=== PATIENT | female | born 1995 | race Caucasian/White ===

== ENCOUNTER 2019-07-28 17:59 | Emergency (ER) | payer SELFPAY ==
[2019-07-28 18:22] VITALS: BP 115/63; PULSE 94; RESP 16; TEMP 36.4; O2SAT 99
[2019-07-28] MEDS: ONDANSETRON 4 MG ODT SL (19:38)
[2019-07-28] MEDS: ACETAMINOPHEN 325 MG TABLET 975 MG PO (19:38)
--- NOTE | 2019-07-28 22:10 | ED.NAVMDI ---
HPI - Nausea/Vomiting/Diarrhea <NORMA Chris - Last Filed: 07/28/19 22:19> General Chief complaint: Nausea/Vomiting/Diarrhea Stated complaint: diarrhea x 3 days, fever, Time Seen by Provider: 07/28/19 18:28 Source: patient Mode of arrival: Ambulatory Limitations: no limitations History of Present Illness HPI Narrative: This is a 23-year-old female, smoker, who presents to ED with chief complain of nausea and diarrhea for last 3 days. Patient reports some abdominal discomfort, body aches, moist cough, subjective chills and sweats, T-max of 100.7? yesterday which has been improving today. Patient reports her appetite has been okay and has been hydrating with water well. Patient denies blood in her stools. Patient denies recent travel but reports her nephew was ill with moist cough a couple of weeks ago. Patient denies known contact with person with positive coronavirus. She works at [employer] and had called in sick for 2 days. Patient denies chest pain, breathing difficulty, urinary symptoms. LMP about 2.5 weeks ago. Related Data Previous Rx's Medication Instructions Recorded cyclobenzaprine 10 mg PO Q8H PRN #30 tab 09/05/17 naproxen 500 mg PO Q12H PRN #30 tab 09/05/17 ondansetron 4 mg PO Q8H PRN 4 Days #10 tab 07/28/19 Allergies Allergy/AdvReac Type Severity Reaction Status Date / Time No Known Allergies Allergy Verified 07/28/19 18:50 Review of Systems <NORMA Chris - Last Filed: 07/28/19 22:19> Review of Systems Narrative: General: See HPI HEENT: Denies sinus pain, ear pain, sore throat, difficulty swallowing, dizziness. Respiratory: Denies dyspnea, (+) moist cough, wheezing, hemoptysis, sputum. Cardiovascular: Denies chest pain, palpitations, orthopnea, edema. Gastrointestinal: See HPI : Denies dysuria, frequency, incontinence, hematuria, urinary retention. Musculoskeletal: Denies weakness, joint pain or bony pain. Skin: Denies rash, skin lesions, or other. Neurologic: Denies weakness, headache, numbness, change in speech, confusion, seizures, incoordination. Psychiatric: No concerning psychosocial issues. 12-point review of systems is negative except for those stated above. Patient History <NORMA Chris - Last Filed: 07/28/19 22:19> Medical History Chronic low back pain (Acute) Social History Smoking Status: Current every day smoker substance use type: marijuana Smoking Status: Current every day smoker Substance Use Type: marijuana Exam <NORMA Chris - Last Filed: 07/28/19 22:19> Narrative Exam Narrative: GEN: Alert, oriented x 3, well appearing and nourished, and in no acute distress. Head: Normal cephalic, atraumatic. No scalp or temporal tenderness, palpable mass or rash. EYES: Pupils are equal, round, and reactive to light and accommodation. Extraocular muscles are intact bilaterally. There is no subconjunctival hemorrhage, exudate and sclera non-icteric. ENT: Right auditory canals and tympanic membranes clear. Left auditory canal occluded with cerumen. Hearing grossly intact. Nose without bleeding, purulent discharge or deviation. Facial sinuses nontender to palpate. Mucous moist, no mucosal lesion. Throat without erythema, tonsillar hypertrophy or exudate. Uvula in midline, airway patent. Neck: Trachea in midline. No JVD, non-tender without lymphadenopathy. No masses or thyroid megaly. Supple, non-tender and no meningeal signs. CARDIAC: Normal regular rate and rhythm without murmurs, gallops, or rubs. No chest wall tenderness. No peripheral edema, cyanosis or pallor. Capillary refill is less than 2 seconds. RESPIRATORY: Lungs are clear to auscultate bilaterally. No cough, wheezes, rales, or rhonchi. No stridor, respiratory distress, increase work of breathing, or accessary muscle used. ABD: Abdomen soft, nontender and non-distended. No guarding or rebound tenderness to palpate. Bowel sounds are normal in all 4 quadrants. There is no palpable masses or organomegaly. EXT: Full painless ROM of all extremities with no loss of sensation, strength, effusion or edema. SKIN: Warm, dry, normal color for patient. No erythema, lesions or rash over visible areas. BACK: Nontender without deformity or crepitance. No flank tenderness. NEUROLOGICAL: Alert and oriented to place, time and person. Sensation and motor function intact bilaterally. No facial droops, dysphasia. PSYCHIATRIC: Good judgement and reason, without hallucinations, abnormal affect or abnormal behaviors during the examination. Initial Vital Signs Initial Vital Signs: Vital Signs Temperature 97.6 F 07/28/19 18:22 Pulse Rate 94 H 07/28/19 18:22 Respiratory Rate 16 07/28/19 18:22 Blood Pressure 115/63 07/28/19 18:22 Pulse Oximetry 99 07/28/19 18:22 <Karen Campos DO - Last Filed: 07/29/19 00:34> Initial Vital Signs Initial Vital Signs: Vital Signs Temperature 97.6 F 07/28/19 18:22 Pulse Rate 94 H 07/28/19 18:22 Respiratory Rate 16 07/28/19 18:22 Blood Pressure 115/63 07/28/19 18:22 Pulse Oximetry 99 07/28/19 18:22 Scores <NORMA Chris - Last Filed: 07/28/19 22:19> GCS Dylan coma scale eye opening: Spontaneous Dylan coma scale verbal response: Orientated Blissfield coma scale motor response: Obey commands Blissfield coma scale total score: 15 Course <NORMA Chris - Last Filed: 07/28/19 22:19> Orders Ordered: Discontinued Medications Acetaminophen (Tylenol) 975 mg PO NOW ONE Stop: 07/28/19 18:46 Last Admin: 07/28/19 19:38 Dose: 975 mg Documented by: RADHA Ondansetron HCl (Zofran Odt) 4 mg SL NOW ONE Stop: 07/28/19 18:46 Last Admin: 07/28/19 19:38 Dose: 4 mg Documented by: RADHA Vital Signs Vital signs: Vital Signs - 8 hr 07/28/19 18:22 Temperature 97.6 F Pulse Rate 94 H Respiratory Rate 16 Blood Pressure 115/63 Pulse Oximetry 99 <Karen Campos DO - Last Filed: 07/29/19 00:34> Orders Ordered: Discontinued Medications Acetaminophen (Tylenol) 975 mg PO NOW ONE Stop: 07/28/19 18:46 Last Admin: 03/25/20 19:38 Dose: 975 mg Documented by: CTRCOLLEEN Ondansetron HCl (Zofran Odt) 4 mg SL NOW ONE Stop: 07/28/19 18:46 Last Admin: 07/28/19 19:38 Dose: 4 mg Documented by: CTR.LORRAINE Vital Signs Vital signs: Vital Signs - 8 hr 07/28/19 18:22 Temperature 97.6 F Pulse Rate 94 H Respiratory Rate 16 Blood Pressure 115/63 Pulse Oximetry 99 [facility] - Nausea/Vomiting/Diarrhea <Hussein NORMA Simpson - Last Filed: 07/28/19 22:19> Differential Diagnosis Differential diagnosis: Likely gastroenteritis, dehydration and other (Viral illness) Medical Records Attestation: I reviewed the patient's medical records. MDM Narrative Medical decision making narrative: This is a 23-year-old female who presents to ED with nausea and diarrhea for last 3 days. Abdomen was nontender to palpate, soft, nondistended. Patient's lung sounds are clear to auscultate without increased work of breathing. Patient is afebrile with stable blood pressure. Patient nontoxic appearing. Patient provided with Zofran and was able to hydrate with water without difficulty in ED and discharged to home with prescription. patient given a day of work note and advised good hand hygiene to prevent possible illness transmission to others. Patient reports Imodium is not necessary at this time and increase supportive care. Return precautions were discussed with the patient and patient verbalized understanding and in agreement with treatment plan. Discharge Plan Departure Patient Disposition: Home Clinical Impression: Nausea, Vomiting, and Diarrhea Discharge Date/Time: 07/28/19 19:40 Instructions: DI for Viral Gastroenteritis -- Adult, Gastroenteritis Diet Activity Restrictions/Additional Instructions: You have been diagnosed with [nausea, vomiting, diarrhea likely from viral gastroenteritis. Please use good hand hygiene to prevent spreading illness to others.]. What to do: *Take your medications as directed. Please take Zofran as needed for nausea and vomiting. You can take up to 3 to 4 times a day. If you can tolerate clear liquids with small sips frequently without vomiting and diarrhea you can advance your diet to bland diet. Zofran has been transmitted to [facility] in [place] [facility]. *Follow up with your primary care provider in 2-3 days, call for an appointment. Let them know you were seen in the ED and that we asked you to be seen in follow up. *Return to ED if you have any new, worsening, or concerning symptoms, such as [fever, pain, chest pain, breathing difficulty, unable to tolerate fluids, signs of dehydration, feeling like fainting, or any acute concerns]. Prescriptions: New ondansetron 4 mg tablet,disintegrating 4 mg PO Q8H PRN (Reason: nausea and vomiting) 4 Days Qty: 10 RF: 0 No Action cyclobenzaprine 10 mg tablet 10 mg PO Q8H PRN (Reason: muscle spasm) Qty: 30 RF: 0 naproxen 500 mg tablet 500 mg PO Q12H PRN (Reason: pain) Qty: 30 RF: 0 Referrals: Rhona Delvalle MD [Primary Care Provider] - Stand Alone Forms: Work Release Note
== END 2019-07-28 19:40 | disposition home or self-care (01) ==
PROVIDERS: Emergency Provider Nurse Practitioner Family; PCP Internal Medicine
DX: R11.2 Nausea with vomiting, unspecified (principal); R19.7 Diarrhea, unspecified; R50.9 Fever, unspecified
CPT/HCPCS: 99283

== ENCOUNTER 2019-08-17 02:08 | Emergency (ER) | payer SELFPAY ==
[2019-08-17 02:17] VITALS: BP 129/77; PULSE 96; RESP 18; TEMP 36.6; O2SAT 96; BMI 34.3
--- NOTE | 2019-08-17 02:32 | ED_ITS ---
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 Had a temperature measured at 100 yesterday when presenting for work. Feeling worse today with intermittent fevers throughout the day, mild sore throat, mild cough, no vomiting or diarrhea or abdominal pain, no rashes or dyspnea. No chest pain, palpitations or lower extremity edema. Related Data Previous Rx's Medication Instructions Recorded cyclobenzaprine 10 mg PO Q8H PRN #30 tab 09/05/17 naproxen 500 mg PO Q12H PRN #30 tab 09/05/17 ondansetron 4 mg PO Q8H PRN 4 Days #10 tab 07/28/19 Allergies Allergy/AdvReac Type Severity Reaction Status Date / Time No Known Allergies Allergy Verified 07/28/19 18:50 Review of Systems Review of Systems Narrative: All systems reviewed and are unremarkable except as noted in HPI and below Patient History Social History Smoking Status: Former smoker substance use type: marijuana Smoking Status: Former smoker alcohol intake frequency: 0-2 drinks per day Substance Use Type: marijuana Exam Narrative Exam Narrative: General: Healthy appearing, in no acute distress. Able to give a complete and coherent history. Well-nourished well-developed HEENT: Moist mucous membranes, normal sclera with reactive pupils, posterior pharynx is non erythematous and without exudate. She has no cervical adenopathy Neck: , supple Respiratory: Lungs are clear to auscultation, no wheezing no rales no rhonchi. Full and symmetrical air movement Cardiac: Regular rate and rhythm no murmurs no bruits Abdomen: Soft nontender good bowel tones, no flank pain Skin: Warm and dry, no rashes Neurologic: Grossly neurologically intact with no obvious asymmetries or abnormalities Extremities: No trauma, well perfused Psych: Cooperative, appropriate insight and affect Initial Vital Signs Initial Vital Signs: Vital Signs Temperature 97.8 F 08/17/19 02:17 Pulse Rate 96 H 08/17/19 02:17 Respiratory Rate 18 08/17/19 02:17 Blood Pressure 129/77 08/17/19 02:17 Pulse Oximetry 96 08/17/19 02:17 Course Orders Ordered: ED Orders 08/17/19 02:45 Influenza A & B (PCR) Stat Vital Signs Vital signs: Vital Signs - 8 hr 08/17/19 02:17 08/17/19 03:49 Temperature 97.8 F 98.4 F Pulse Rate 96 H 81 Respiratory Rate 18 16 Blood Pressure 129/77 119/72 Pulse Oximetry 96 100 Medical Decision Making Medical Records Medical records reviewed: Yes I reviewed the patient's medical records. Lab Data Lab results reviewed: Yes I reviewed the patient's lab results. 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 Influenza and COVID-19 swabs are done with instructions to not return to work until she has been completely asymptomatic of fevers, chills, cough and fever for 72 hours Discharge Plan Departure Patient Disposition: Home Clinical Impression: Viral infection Discharge Date/Time: 08/17/19 03:49 Instructions: DI for Influenza -- Adult Activity Restrictions/Additional Instructions: You have an influenza like illness which may be Covid19. Current recommendations are to home isolate (see CDC guidelines below) You should not return to work until you are completely asymptomatic, no fevers, cough, muscle aches for at least 72 hours I hope you heal quickly CDC Guidelines for home isolation: - Stay away from others - Limit contact with pets and animals: If you must care for a pet, wash your hands before and after interacting with them - Wear a mask if you are sick - Cover your mouth and nose with a tissue when you cough or sneeze. Dispose of tissues in a lined trash can and wash your hands immediately with soap and water for at least 20 seconds. If soap and water are not available, clean hands with alcohol-based hand proposal editor that contains at least 60% alcohol. - Clean your hands often with soap and water for at least 20 seconds - Avoid touching your eyes, nose and mouth with unwashed hands - Do not share dishes, drinking glasses, cups, eating utensils, towels, or bedding with other people in your home. After using these items, wash them thoroughly with soap and water or put in the border measurer. - Clean high-touch surfaces in your isolation area (?sick room? and bathroom) every day; let a caregiver clean and disinfect high-touch surfaces in other areas of the home. Clean the area or item with soap and water or another dete rgent if it is dirty. Then, use a household disinfectant. Seek medical attention, but call first: - Seek medical care right away if your illness is worsening (for example, if you have difficulty breathing). - Call your doctor before going in: Before going to the doctor?s office or emergency room, call ahead and tell them your symptoms. They will tell you what to do. - If possible, put on a facemask before you enter the building. If you can?t put on a facemask, try to keep a safe distance from other people (at least 6 feet away). This will help protect the people in the office or waiting room. - Follow care instructions from your healthcare provider and local health department: Your local health authorities will give instructions on checking your symptoms and reporting information. Emergency warning signs for COVID-19: - Difficulty breathing or shortness of breath - Persistent pain or pressure in the chest - New confusion or inability to arouse - Bluish lips or face Prescriptions: No Action cyclobenzaprine 10 mg tablet 10 mg PO Q8H PRN (Reason: muscle spasm) Qty: 30 RF: 0 naproxen 500 mg tablet 500 mg PO Q12H PRN (Reason: pain) Qty: 30 RF: 0 ondansetron 4 mg tablet,disintegrating 4 mg PO Q8H PRN (Reason: nausea and vomiting) 4 Days Qty: 10 RF: 0 Referrals: Rhona Delvalle MD [Primary Care Provider] -
[2019-08-17 03:49] VITALS: BP 119/72; PULSE 81; RESP 16; TEMP 36.9; O2SAT 100
[2019-08-17 04:04] LABS: Influenza A - CEPHEID Flu A NEGATIVE (NEGATIVE); Influenza B - CEPHEID Flu B NEGATIVE (NEGATIVE)
--- NOTE | 2019-08-17 04:15 | PC.NURSE ---
patient discharged before flu results back. I called patient after the flu results came back to update her. patient aware flu is negative. provider aware.
[2019-08-19 04:07] LABS: COVID19 Sendout Not Detected (Not Detected)
== END 2019-08-17 03:49 | disposition home or self-care (01) ==
PROVIDERS: Emergency Provider Emergency Medicine; PCP Internal Medicine
DX: Z03.818 Encounter for observation for suspected exposure to other biological agents ruled out (principal); B34.9 Viral infection, unspecified; R50.9 Fever, unspecified
CPT/HCPCS: 87502; 87635; 99281; 99282

== ENCOUNTER 2019-08-30 16:07 | Emergency (ER) | payer OTHER, SELFPAY ==
[2019-08-30 16:14] VITALS: BP 147/93; PULSE 95; RESP 16; TEMP 37.3; O2SAT 97; BMI 37.8
--- NOTE | 2019-08-30 19:10 | ED_ITS ---
HPI - Extremity Injury (Upper) General Chief Complaint: Extremity Injury, Upper Stated Complaint: Left Arm Injury at Work Time Seen by Provider: 08/30/19 19:10 Source: patient Mode of arrival: Ambulatory Limitations: no limitations History of Present Illness HPI narrative: 23F former smoker with noncontributory medical history presents with a chief complaint left shoulder pain that radiates across her upper back to her right shoulder since an incident earlier today at work. Her left arm to try to prevent a heavy door from closing when she felt pain in that shoulder that is now reproducible with range of motion and palpation. She denies any numbness, tingling or weakness. She denies any history of pain in the shoulder. She is otherwise well free of complaint. MD complaint: injury to: left Onset (ago): hour(s) Other Extremity Injury: Left: shoulder Handedness: right Place: work Severity: moderate Relieving factors: immobilization and rest Exacerbating factors: movement of extremity Context: other Associated symptoms: denies other symptoms Related Data Previous Rx's Medication Instructions Recorded cyclobenzaprine 10 mg PO Q8H PRN #30 tab 09/05/17 naproxen 500 mg PO Q12H PRN #30 tab 09/05/17 ondansetron 4 mg PO Q8H PRN 4 Days #10 tab 07/28/19 ibuprofen 600 mg PO TID-QID PRN #20 tab 08/30/19 Allergies Allergy/AdvReac Type Severity Reaction Status Date / Time No Known Allergies Allergy Verified 08/30/19 16:14 Review of Systems Constitutional Constitutional: Denies chills, Denies fatigue, Denies fever(s), Denies frequent falls, Denies lethargy and Denies weakness Eyes Eyes: Denies change in vision, Denies eye discharge, Denies irritation and Denies loss of vision ENT Ears, Nose, Mouth, and Throat: Denies change in voice, Denies dizziness, Denies neck pain, Denies sore throat and Denies throat swelling Cardiovascular Cardiovascular: Denies chest pain, Denies irregular heart rhythm, Denies lightheadedness, Denies palpitations, Denies dyspnea, Denies dyspnea on exertion and Denies orthopnea Respiratory Respiratory: Denies cough, Denies dyspnea, Denies dyspnea on exertion and Denies wheezing Gastrointestinal Gastrointestinal: Denies abdominal pain, Denies change in bowel habits, Denies diarrhea, Denies nausea and Denies vomiting Genitourinary Genitourinary: Denies hematuria, Denies flank pain, Denies urinary incontinence and Denies urinary urgency Musculoskeletal Musculoskeletal: Denies back pain, Reports limited range of motion, Denies muscle weakness, Denies neck pain, Denies numbness and Denies tingling Integumentary/Breasts Skin/Breast: Denies pruritus, Denies erythema, Denies rash and Denies wounds Neurologic Neurologic: Denies behavioral changes, Denies confusion, Denies dizziness, Denies frequent falls, Denies loss of vision, Denies numbness, Denies tingling and Denies weakness Psychiatric Psychiatric: Denies anxiety, Denies behavioral changes, Denies confusion, Denies depression, Denies homicidal ideation and Denies suicidal ideation Endocrine Endocrine: Denies fatigue, Denies flushing and Denies palpitations Hematologic/Lymphatic Hematologic/Lymphatic: Denies easy bruising Allergic/Immunologic Allergic/Immunologic: Denies urticaria, Denies throat swelling and Denies wheezing Patient History Medical History Chronic low back pain (Acute) Social History Smoking Status: Former smoker substance use type: marijuana Smoking Status: Former smoker alcohol intake frequency: 0-2 drinks per day Substance Use Type: marijuana Exam Narrative Exam Narrative: GEN: AOx3 and in mild distress EYES: Pupils are equal, round, and reactive to light and accommodation. Extraoccular muscles are intact bilaterally. There is no subconjunctival hemorrhage or exudate. CHEST: Lungs are clear to auscultation bilaterally and free of wheezes, rales, or rhonchi. Heart rate is regular rhythm, there are no murmurs, clicks, rubs, or gallops. There is no chest wall tenderness. ABD: Abdomen is soft and nontender. There is no guarding or rebound. Bowel sounds are normal in all 4 quadrants. There is no mass or organomegaly. EXT: Full but painful range of motion of left shoulder. No obvious deformity. Able to use left hand to reach across to right shoulder without difficulty. Full strength and sensation intact. SKIN: Warm, pink, and dry. No erythema or rash Initial Vital Signs Initial Vital Signs: Vital Signs Temperature 99.1 F 08/30/19 16:14 Pulse Rate 95 H 08/30/19 16:14 Respiratory Rate 16 08/30/19 16:14 Blood Pressure 147/93 H 08/30/19 16:14 Pulse Oximetry 97 08/30/19 16:14 Course Vital Signs Vital signs: Vital Signs - 8 hr 08/30/19 16:14 Temperature 99.1 F Pulse Rate 95 H Respiratory Rate 16 Blood Pressure 147/93 H Pulse Oximetry 97 MDM - Extremity Injury (Upper) Imaging Data Extremity x-ray #1: Radiologist's Impression: Georgette Zamora R 23 F [address] [address] XRay Report Signed Patient: Georgette Zamora RMR#: [id number] : 1995Acct:[id number] Age/Sex: 23 / FDate of Service: 08/30/19 Loc: ED Accession Number: [id number] Procedure: XR shoulder LT min 2V Ordering Provider: Yonathan Clements D.O. PROCEDURE: XR SHOULDER LT MIN 2V INDICATIONS: work injury, shoulder pain TECHNIQUE: 3 views of the shoulder were acquired. COMPARISON: None. FINDINGS: Bones: No fractures or dislocations. No suspicious bony lesions. Visualized ribs appear intact. Coracoclavicular and acromioclavicular intervals are maintained. Soft tissues: No suspicious soft tissue calcifications. IMPRESSION: Left shoulder without acute fracture or malalignment. Dictated by: Clive Vargas M.D. on 08/30/2019 at 19:35 Approved by: Clive Vargas M.D. on 08/30/2019 at 19:36 Discharge Plan Departure Patient Disposition: Home Clinical Impression: Sprain of left shoulder Qualifiers: Encounter type: initial encounter Shoulder sprain type: unspecified sprain Qualified Code(s): S43.402A - Unspecified sprain of left shoulder joint, initial encounter Discharge Date/Time: 08/30/19 20:23 Activity Restrictions/Additional Instructions: *You have been diagnosed with [left shoulder sprain] *What to do: *Take medications as directed: medication sent to [facility] *Follow up with your primary care provider in 2-3 days, call for an appointment. Let them know you were seen in the Emergency Department and that we ask that you be seen in follow up *Return to ER if you should have any new, worsening or concerning symptoms Prescriptions: New ibuprofen 600 mg tablet 600 mg PO TID-QID PRN (Reason: pain) Qty: 20 RF: 0 No Action cyclobenzaprine 10 mg tablet 10 mg PO Q8H PRN (Reason: muscle spasm) Qty: 30 RF: 0 naproxen 500 mg tablet 500 mg PO Q12H PRN (Reason: pain) Qty: 30 RF: 0 ondansetron 4 mg tablet,disintegrating 4 mg PO Q8H PRN (Reason: nausea and vomiting) 4 Days Qty: 10 RF: 0 Referrals: Rhona Delvalle MD [Primary Care Provider] - Stand Alone Forms: Work Release Note
--- NOTE | 2019-08-30 19:16 | DI.RAD.S_ITS ---
PROCEDURE: XR SHOULDER LT MIN 2V INDICATIONS: work injury, shoulder pain TECHNIQUE: 3 views of the shoulder were acquired. COMPARISON: None. FINDINGS: Bones: No fractures or dislocations. No suspicious bony lesions. Visualized ribs appear intact. Coracoclavicular and acromioclavicular intervals are maintained. Soft tissues: No suspicious soft tissue calcifications. IMPRESSION: Left shoulder without acute fracture or malalignment. Dictated by: Clive Vargas M.D. on 08/30/2019 at 19:35 Approved by: Clive Vargas M.D. on 08/30/2019 at 19:36
[2019-08-30 20:22] VITALS: BP 138/88; PULSE 88; RESP 16; O2SAT 97
== END 2019-08-30 20:23 | disposition home or self-care (01) ==
PROVIDERS: Emergency Provider Emergency Medicine; PCP Internal Medicine
DX: S43.402A Unspecified sprain of left shoulder joint, initial encounter (principal); W22.8XXA Striking against or struck by other objects, initial encounter; Y99.0 Civilian activity done for income or pay
CPT/HCPCS: 73030; 99282; 99283

== ENCOUNTER → 2019-11-14 16:19 | Outpatient (CLI) | payer OTHER, MEDICAID, SELFPAY ==
[2019-11-18 22:07] LABS: COVID19 Sendout Not Detected (Not Detected)
== END ==
PROVIDERS: PCP Internal Medicine; Visit Provider Physician Assistant
DX: Z11.59 Encounter for screening for other viral diseases (principal)
CPT/HCPCS: 87635

== ENCOUNTER 2025-02-06 03:47 | Emergency (ER) | payer OTHER, MEDICAID, SELFPAY ==
[2025-02-06 03:54] VITALS: BP 129/82; PULSE 83; RESP 16; TEMP 37; O2SAT 96; BMI 42.0
--- NOTE | 2025-02-06 04:16 | ED.BACK ---
HPI - Back Pain/Injury General Chief Complaint: Back Pain/Injury Stated Complaint: Upper back pain Time Seen by Provider: 02/06/25 04:14 Source: patient History of Present Illness HPI Narrative: 29-year-old female was working out yesterday in the gym, leg extension, thinks she might have leaned too far forward or backwards, no back support brace in the exercise machine, when she was home felt upper mid back pain. Not responding to [id number] medications at home. Able to walk. Denies pain parasthesias to arms or legs. Taking cyclobenzaprine that is not helping. Related Data Home Medications ?Medication ?Instructions ?Recorded ?Confirmed control 02/06/25 buspirone 15 mg capsule 20 mg PO TID 02/06/25 02/06/25 Previous Rx's ?Medication ?Instructions ?Recorded cyclobenzaprine 10 mg tablet 10 mg PO Q8H PRN muscle spasm #30 09/05/17 tabs ibuprofen 600 mg tablet 600 mg PO TID-QID PRN pain #20 tabs 08/30/19 methocarbamol 500 mg tablet 500 mg PO TID 7 days #21 tabs 02/06/25 naproxen 500 mg tablet 500 mg PO BID 7 days #14 tabs 02/06/25 Allergies Allergy/AdvReac Type Severity Reaction Status Date / Time No Known Allergies Allergy Verified 02/06/25 03:51 Patient History Medical History (Updated 02/06/25 @ 05:15 by Emile Beltrán MD) Chronic low back pain Social History Smoking Status: Current every day smoker substance use type: marijuana Smoking Status: Current every day smoker tobacco type: vaping alcohol intake frequency: 0-2 drinks per day Exam Narrative Exam Narrative: GENERAL: Well-developed patient, in mild distress. HEAD: Atraumatic. Normocephalic. EYES: Pupils equal round and reactive. Extraocular motions intact. No scleral icterus. No injection or drainage. ENT: Nose without bleeding, purulent drainage. Throat without erythema, tonsillar hypertrophy or exudate. Airway patent. NECK: Trachea midline. Non tender CARDIOVASCULAR: Regular rate and rhythm without murmurs, gallops, or rubs. RESPIRATORY: Clear to auscultation. Breath sounds equal bilaterally. No wheezes, rales, or rhonchi. GASTROINTESTINAL: Abdomen soft, non-tender, nondistended. EXTREMITIES: No edema or joint tenderness. BACK: Mild mid upper paraspinal muscular tenderness, no midline tenderness. No CVA region tenderness. NEURO: AOx3. Motor functions grossly nonfocal. SKIN: No rash or erythema of visible areas Initial Vital Signs Initial Vital Signs: Vital Signs Temperature 98.6 F 02/06/25 03:54 Pulse Rate 83 02/06/25 03:54 Respiratory Rate 16 02/06/25 03:54 Blood Pressure 129/82 02/06/25 03:54 Pulse Oximetry 96 02/06/25 03:54 Oxygen Delivery Method Room Air 02/06/25 03:54 Course Orders Ordered: Discontinued Medications Ketorolac Tromethamine (Ketorolac 30 Mg/Ml Vial) 30 mg IM NOW ONE Stop: 02/06/25 04:21 Last Admin: 02/06/25 04:30 Dose: 30 mg Documented By: AB Methocarbamol (Methocarbamol 500 Mg Tablet) 500 mg PO NOW ONE Stop: 02/06/25 04:21 Last Admin: 02/06/25 04:30 Dose: 500 mg Documented By: AB Vital Signs Vital signs: Vital Signs - 8 hr 02/06/25 03:54 Temperature 98.6 F Pulse Rate 83 Respiratory Rate 16 Blood Pressure 129/82 Pulse Oximetry 96 Oxygen Delivery Method Room Air MDM - Back Pain/Injury MDM Narrative Medical decision making narrative: 29-year-old female without prior back interventions, complains of mid upper back pain after working out of the gym, some mild tenderness paraspinal not midline. Thoracic spine x-ray series ordered. Patient had taken cyclobenzaprine for this, and ibuprofen. She has minimal relief with this regimen. X-ray series thoracic spine. No acute traumatic injury identified. See radiology report. IM Toradol, oral methocarbamol/Robaxin given. Symptoms seemed to be improving. Trial of methocarbamol/Robaxin in place of cyclobenzaprine for now. Consider naproxen twice daily in place of ibuprofen, not any better but perhaps a more simple regimen just twice daily. Patient agreeable to this plan. Prescription sent to her pharmacy. Encouraged to recheck with your regular doctor in the next couple of days. Return precautions discussed. Discharge Plan Departure Patient Disposition: Home Clinical Impression: Thoracic back sprain Instructions: DI for Muscle Strain Activity Restrictions/Additional Instructions: Mid upper back pain after working out at the gymnasium, no direct blow or definite trauma. Increasing pain on returned from the gym mid upper back. No significant midline tenderness or paraspinal tenderness. Screening thoracic spine x-rays negative for obvious fractures or acute changes per Radiology report. Trial of muscle relaxant and anti-inflammatory pain medication. Prescription for Robaxin and ibuprofen. Home pack hydrocodone to use if needed. Follow up with PCP advised later this mid week. Prescriptions: New naproxen 500 mg tablet 500 mg PO BID 7 Days Qty: 14 0RF methocarbamol 500 mg tablet 500 mg PO TID 7 Days Qty: 21 0RF No Action cyclobenzaprine 10 mg tablet 10 mg PO Q8H PRN (Reason: muscle spasm) Qty: 30 0RF Rx Instructions: 1 tab up to q8h prn muscle pain/spasm. Do not drive buspirone 15 mg capsule 20 mg PO TID control ibuprofen 600 mg tablet 600 mg PO TID-QID PRN (Reason: pain) Qty: 20 0RF Stand Alone Forms: Patient Portal/API, Work Release Note
--- NOTE | 2025-02-06 04:20 | DI.RAD.S_ITS ---
PROCEDURE: XR THORACIC SPINE 3V INDICATIONS: mid upper back pain, worked out at gym TECHNIQUE: 4 views of the thoracic spine were acquired. COMPARISON: None. FINDINGS: Bones: No fractures or dislocations. No suspicious bony lesions. 12 pairs of ribs are noted, and appear intact where visualized. Soft tissues: No paravertebral stripe thickening. IMPRESSION: No acute bony abnormality. No significant degenerative changes. Dictated by: Josh Schumacher M.D. on 02/06/2025 at 6:44 Approved by: Josh Schumacher M.D. on 02/06/2025 at 6:46
[2025-02-06] MEDS: KETOROLAC 30 MG/ML VIAL IM (04:30)
[2025-02-06 06:06] VITALS: BP 111/63; PULSE 75; RESP 18; O2SAT 100
== END 2025-02-06 06:07 | disposition home or self-care (01) ==
PROVIDERS: Emergency Provider Emergency Medicine
DX: S23.3XXA Sprain of ligaments of thoracic spine, initial encounter (principal); X58.XXXA Exposure to other specified factors, initial encounter
CPT/HCPCS: 72072; 96372; 99283; J1885

== ENCOUNTER 2025-04-07 10:47 | Emergency (ER) | payer SELFPAY ==
[2025-04-07 11:14] VITALS: BP 136/79; PULSE 87; RESP 16; TEMP 36.4; O2SAT 98; BMI 41.1
[2025-04-07] MEDS: ONDANSETRON 4 MG ODT SL (11:29)
--- NOTE | 2025-04-07 12:02 | ED_ITS ---
HPI - Nausea/Vomiting/Diarrhea General Chief complaint: Nausea/Vomiting/Diarrhea Stated complaint: Threw up this morning Time Seen by Provider: 04/07/25 11:02 Source: patient Mode of arrival: Family Vehicle History of Present Illness HPI Narrative: Georgette Zamora is a pleasant 29-year-old female with a past medical history of depression, anxiety, who presents to the emergency department for 1 episode of nonbloody vomiting this morning, concerned for possible . Patient states that she is on OCPs, was started on a new control pill about 1 month ago, this morning she woke up nauseous and threw up 1 time, she felt be tter afterwards but is worried that she may be . LMP about 1 month ago. She denies any abdominal pain but reports mild queasiness. No dysuria. She had 1 episode of loose stool yesterday, none today. No fevers, chills, cough, sore throat or other flu-like symptoms. She is here with her mom. Related Data Home Medications ?Medication ?Instructions ?Recorded ?Confirmed control 02/06/25 buspirone 15 mg capsule 20 mg PO TID 02/06/25 Previous Rx's ?Medication ?Instructions ?Recorded cyclobenzaprine 10 mg tablet 10 mg PO Q8H PRN muscle s pasm #30 09/05/17 tabs ibuprofen 600 mg tablet 600 mg PO TID-QID PRN pain # 20 tabs 08/30/19 ondansetron 4 mg disintegrating 4 mg PO Q6-8H PRN naus ea and 04/07/25 tablet vomiting #20 tabs Allergies Allergy/AdvReac Type Severity Reaction Status Date / Time No Known Allergies Allergy Verified 04/07/25 11:14 Review of Systems Review of Systems ROS Unobtainable: All systems reviewed & are unremarkable except as noted in HPI and below Patient History Medical History Chronic low back pain Social History Smoking Status: Current every day smoker substance use type: marijuana Smoking Status: Current every day smoker tobacco type: vaping alcohol intake frequency: 0-2 drinks per day Exam Narrative Exam Narrative: GENERAL: 29 year old patient appears stated age. Well-developed patient, in no acute distress. HEAD: Atraumatic. Normocephalic. EYES: No scleral icterus. No injection or drainage. NECK: Trachea midline. Cervical ROM intact. CARDIOVASCULAR: Regular rate and rhythm. RESPIRATORY: ?Nonlabored respirations. ?Speaking in clear, full sentences. ?Clear to auscultation. Breath sounds equal bilaterally. No wheezes, rales, or rhonchi. ? GASTROINTESTINAL: Abdomen soft, non-tender, nondistended. BS present. EXTREMITIES: No LE edema. BACK: No CVA tenderness BL. NEURO: AOx3. ?Clear speech. ?Moves all 4 extremities appropriately. SKIN: No rash or erythema of visible areas Initial Vital Signs Initial Vital Signs: Vital Signs Temperature 97.6 F 04/07/25 11:14 Pulse Rate 87 04/07/25 11:14 Respiratory Rate 16 04/07/25 11:14 Blood Pressure 136/79 04/07/25 11:14 Pulse Oximetry 98 04/07/25 11:14 Oxygen Delivery Method Room Air 04/07/25 11:14 Course Orders Ordered: ED Orders 04/07/25 11:35 Urine Culture Stat Urine Microscopic Stat Discontinued Medications Ondansetron HCl (Ondansetron 4 Mg Odt) 4 mg SL NOW ONE Stop: 04/07/25 11:18 Last Admin: 04/07/25 11:29 Dose: 4 mg Documented By: AUGIE Vital Signs Vital signs: Vital Signs - 8 hr 04/07/25 11:14 Temperature 97.6 F Pulse Rate 87 Respiratory Rate 16 Blood Pressure 136/79 Pulse Oximetry 98 Oxygen Delivery Method Room Air MDM - Nausea/Vomiting/Diarrhea Medical Records Attestation: I reviewed the patient's medical records. Lab Data Labs: Lab Results 04/07/25 Range/Units 11:35 Urine RBC 0-1/hpf (0-5/HPF) Urine WBC 0-1/hpf (0-5/HPF) Ur Squamous Epith Cells 5-10 /hpf H (0-5/HPF) Urine Bacteria Occasional (0-1) (None) Ur Culture Indicated? TNP Vol Urine Centrifuged 10ml (spun) Point of Care Testing Test Results Negative Urine Dip Bedside Urine Glucose Negative Bedside Urine Bilirubin - Negative Bedside Urine Ketone - Negative Urine Specific [place] 1.025 Bedside Urine Occult Blood + Bedside Urine pH 6.0 Bedside Urine Protein - Negative Bedside Urine Urobilinogen - Negative Bedside Urine Nitrite - Negative Bedside Urine Leukocytes - Negative Esterase MDM Narrative Medical decision making narrative: 29-year-old female with a past medical history of depression, anxiety, who presents to the emergency department for 1 episode of nonbloody vomiting this morning, concerned for possible . Differential diagnosis includes but isn't limited to gastroenteritis, morning sickness, , UTI, cholecystitis, pancreatitis, etc. On exam the patient is in no acute distress, nontoxic-appearing, all vital signs within normal limits. She is here for an isolated episode of nonbloody vomiting this morning, some residual nausea but overall feeling better. She is concerned for . Abdominal exam is benign. She does not feel dehydrated. We will treat with Zofran ODT, obtain urinalysis and reassess symptoms. Patient feeling better after Zofran. U preg is negative. Urinalysis is negative for signs of infection, negative for ketones. Encourage patient to rest, continue hydrating, use prescribed Zofran if needed for nausea, and retest for if she misses her period this month. Discussed strict ER return precautions. Patient verbalized understanding of all information is agreeable with the plan, tolerating p.o., stable for discharge home with her mom. Discharge Plan Departure Patient Disposition: Home Clinical Impression: Nausea & vomiting Qualifiers: Vomiting type: unspecified Qualified Code(s): R11.2 - Nausea with vomiting, unspecified Instructions: DI for Vomiting -- Adult Activity Restrictions/Additional Instructions: Dear Maty Noah, Thank you for coming to the emergency department. Today you were evaluated for nausea, vomiting, concern. Your test was negative. You were treated with a nausea medication called Zofran. I have sent this to your pharmacy. Please rest, focus on hydration, drink electrolyte beverages, and use the prescribed nausea medicine if and as needed. Please return to the emergency department immediately if you develop severe pain, fevers, or any other concerns. If your menstrual cycle does not start, please we take a test in about 1 week. You can continue taking test at home if you have concerns. Please follow up with your primary care doctor within the next 2-3 days for ER follow-up. (If you do not have a PCP you can call [phone]. ?to schedule an appointment with an [facility] Primary Care Provider) IF YOU DEVELOP ANY NEW OR WORSENING SYMPTOMS, RETURN TO THE ER! Please read the attached instructions, they highlight more specific treatments and interventions for you at home. Thank you for letting me participate in your care, Diandra Cardoza PA-C Prescriptions: New ondansetron 4 mg tablet,disintegrating 4 mg PO Q6-8H PRN (Reason: nausea and vomiting) Qty: 20 0RF No Action cyclobenzaprine 10 mg tablet 10 mg PO Q8H PRN (Reason: muscle spasm) Qty: 30 0RF Rx Instructions: 1 tab up to q8h prn muscle pain/spasm. Do not drive buspirone 15 mg capsule 20 mg PO TID control ibuprofen 600 mg tablet 600 mg PO TID-QID PRN (Reason: pain) Qty: 20 0RF Stand Alone Forms: Patient Portal/API, Work Release Note
== END 2025-04-07 12:25 | disposition home or self-care (01) ==
PROVIDERS: Emergency Provider Physician Assistant
DX: R11.2 Nausea with vomiting, unspecified (principal)
CPT/HCPCS: 81003; 81015; 81025; 87086; 99283